=== PATIENT | female | born 1940 | race Caucasian/White ===

== ENCOUNTER 2016-07-19 21:44 | Emergency (ER) | payer OTHER, MEDICARE ==
[~2016-07-19] VITALS: Ht 172.7 cm; Wt 136.0 kg
[~2016-07-19 21:44] MED LIST: ADVAIR 500/501 DISK IH; ASPIR 8181 M1 PO; Advair 500/50 Diskus IH; B-12500 MC1 SL; Cardizem CD,LA,Cartia,Tiazac,Dilacor,Taztia PO; ELIQUIS5 MG PO; FUROSEMIDE20 MG PO; LORTAB PO; Lasix PO; Lopressor PO; Lovenox SC; MYCOSTATIN 100,60 ML PO; Milk Of Magnesia,MOM PO; NEXIUM20 MG PO; NEXIUM40 MG PO; PROAIR HFA8.5 GM IH; Proventil,Ventolin H IH; SINGULAIR10 MG PO; STOOL SOFTENER250 MG PO; Singulair PO; TOPROL XL25 MG PO; TYLENOL ARTHRI650 MG PO; TYLENOL REGULA325 MG PO; Tylenol Extra Streng PO; VITAMIN B-6100 MG PO; WELCHOL625 MG PO
[2016-07-20 01:24] VITALS: BP 117/81
== END 2016-07-20 01:24 | disposition home or self-care (01) ==
LOC: EME 21:44
DX: M54.5 Low back pain (principal); R11.0 Nausea; M25.552 Pain in left hip; M25.551 Pain in right hip; W18.09XA Striking against other object with subsequent fall, initial encounter; E78.5 Hyperlipidemia, unspecified; K21.9 Gastro-esophageal reflux disease without esophagitis; J45.909 Unspecified asthma, uncomplicated; I10 Essential (primary) hypertension; I25.10 Atherosclerotic heart disease of native coronary artery without angina pectoris; Z85.42 Personal history of malignant neoplasm of other parts of uterus; Z87.442 Personal history of urinary calculi
CPT/HCPCS: 70450; 72131; 72192; 99281; 99284